=== PATIENT | female | born 1995 | race Caucasian/White ===

== ENCOUNTER 2023-11-25 23:32 | Emergency (ER) | payer SELFPAY ==
[2023-11-26] MEDS ORDERED: Dexamethasone 10 MG/ML VIAL ONE (00:25)
[2023-11-26 00:47] LABS: SARS-CoV-2 NAA Rapid Test Not Detected (NotDetected)
== END 2023-11-26 01:14 | disposition home or self-care (01) ==
LOC: ERS 23:32
DX: J10.1 Influenza due to other identified influenza virus with other respiratory manifestations (principal)
CPT/HCPCS: 87081; 87430; 99283; J1100